=== PATIENT | male | born 1960 | race African-American/Black ===

== ENCOUNTER 2025-03-27 13:13 | Inpatient (IN) | payer OTHER ==
[2025-03-27 15:00] LABS: ABSOLUTE IMMATURE GRANULOCYTES 0.01 x10^3/uL (0.0-0.031); BASOPHILS # 0.05 x10^3/uL (0.01-0.08); EOSINOPHIL % 0.7 % (0.8-7.0); EOSINOPHILS # 0.05 x10^3/uL (0.04-0.54); MCHC 32.0 g/dl (32.3-36.5); MEAN CELL VOLUME 83.9 fl (79.0-92.2); MEAN PLT VOLUME 9.3 fl (9.4-12.4); MONOCYTE # 0.64 x10^3/uL (0.30-0.82); MONOCYTE % 9.3 % (5.3-12.2); RDW 16.1 % (12.2-16.4)
[2025-03-27 15:02] LABS: URINE APPEARANCE CLEAR; URINE BILIRUBIN NEGATIVE (NEGATIVE); URINE COLOR YELLOW; URINE GLUCOSE (UA) NEGATIVE (NEGATIVE); URINE KETONE NEGATIVE (NEGATIVE); URINE LEUK ESTERASE NEGATIVE (NEGATIVE); URINE NITRITE NEGATIVE (NEGATIVE); URINE PROTEIN NEGATIVE (NEGATIVE); URINE UROBILINOGEN 0.2 mg/dL (0.2-1.0)
[2025-03-27 15:09] LABS: INR 1.24 (0.83-1.09); PROTHROMBIN TIME (PATIENT) 13.6 SEC (9.7-13.0)
[2025-03-27 15:12] LABS: ACTIVATED PTT 27.3 SECONDS (25.2-36.5)
[2025-03-27 15:20] LABS: CO2 22.0 mmol/L (21-32); GLUCOSE,RANDOM 122.0 mg/dL (74-106)
[2025-03-27 15:23] LABS: CREATININE 1.1 mg/dL (0.55-1.3); SGOT/AST 72.0 U/L (15-37); SGPT/ALT 81.0 U/L (13-61)
[2025-03-27 15:25] LABS: TOT PROT 7.1 g/dl (6.4-8.2)
[2025-03-27 15:26] LABS: ALK PHOS 142.0 U/L (45-117)
[2025-03-27 15:28] LABS: N-TERMINAL BNP 10964.8 pg/ml (5-125)
[2025-03-27] MEDS ORDERED: FUROSEMIDE 40 MG/4 ML INJECTABLE VIAL ONE (16:06)
[2025-03-27] MEDS: FUROSEMIDE 40 MG/4 ML INJECTABLE VIAL IVPUSH ONE (16:13)
[2025-03-27] MEDS: LABETALOL HCL 20 MG/4 ML VIAL IVPUSH ONE (17:48)
[2025-03-27] MEDS: APIXABAN 5 MG TABLET PO SCH (21:25)
[2025-03-27] MEDS ORDERED: hydrALAZINE HCL 50 MG TABLET (FP) PO SCH (22:00)
[2025-03-28 00:08] VITALS: BMI 24.8
[2025-03-28] MEDS: METOPROLOL TARTRATE 5 MG/5 ML VIAL IVPUSH ONE (01:32)
[2025-03-28] MEDS: FUROSEMIDE 40 MG/4 ML INJECTABLE VIAL IVPUSH SCH (05:48)
[2025-03-28 08:07] LABS: MCHC 31.8 g/dl (32.3-36.5); MEAN CELL VOLUME 84.3 fl (79.0-92.2); MEAN PLT VOLUME 9.7 fl (9.4-12.4); RDW 16.4 % (12.2-16.4)
[2025-03-28 08:39] LABS: CO2 31.0 mmol/L (21-32)
[2025-03-28 08:40] LABS: GLUCOSE,RANDOM 98.0 mg/dL (74-106)
[2025-03-28 08:43] LABS: CREATININE 1.3 mg/dL (0.55-1.3); SGOT/AST 56.0 U/L (15-37); SGPT/ALT 67.0 U/L (13-61)
[2025-03-28 08:44] LABS: TOT PROT 6.3 g/dl (6.4-8.2)
[2025-03-28 08:45] LABS: ALK PHOS 133.0 U/L (45-117)
[2025-03-28 09:11] VITALS: PULSE 124
[2025-03-28] MEDS ORDERED: ENOXAPARIN NA (PORCINE) 40 MG/0.4 ML DISP.SYRIN SQ SCH (10:00)
[2025-03-28] MEDS: MAGNESIUM SULFATE IN WATER 2 GM/50 ML IVPB IVPB ONE (10:40)
[2025-03-28] MEDS: hydrALAZINE HCL 50 MG TABLET (FP) PO SCH (10:40)
[2025-03-28] MEDS: LOSARTAN POTASSIUM 25 MG TABLET PO SCH (10:40)
[2025-03-28 13:46] VITALS: BP 97/74; RESP 18; TEMP 97
== END 2025-03-28 17:27 | disposition short-term general hospital (02) | DRG 308 ==
LOC: JER 13:13 → JERBED 16:21 → J4W 19:48 → OBSVTOIN 03-28 09:58
PROVIDERS: ADMIT Internal Medicine; ATTEND Internal Medicine
DX: I48.92 Unspecified atrial flutter (principal); I50.23 Acute on chronic systolic (congestive) heart failure; R74.01 Elevation of levels of liver transaminase levels; I16.0 Hypertensive urgency; I11.0 Hypertensive heart disease with heart failure
CPT/HCPCS: 36415; 71045-TC-FY; 80053; 81003; 82248; 83036; 83735; 83880; 84439; 84443; 84484; 85025; 85027; 85610; 85730; 86850; 86900; 86901; 87637-QW; 93005; 93010; 93306-TC; 99285-25; G0378